=== PATIENT | female | born 1970 | race Caucasian/White ===

== ENCOUNTER → 2020-05-22 12:05 | Outpatient (BNVA) | payer BC, SELFPAY | PROVIDERS: Visit Provider Obstetrics & Gynecology | DX: Z11.3 Encounter for screening for infections with a predominantly sexual mode of transmission (principal) | CPT/HCPCS: 86592; 86803; 87340; 87806 ==

== ENCOUNTER → 2020-06-16 09:31 | Outpatient (BNVA) | payer BC, SELFPAY | PROVIDERS: Visit Provider Obstetrics & Gynecology | DX: R10.2 Pelvic and perineal pain (principal); N83.209 Unspecified ovarian cyst, unspecified side; Z90.710 Acquired absence of both cervix and uterus | CPT/HCPCS: 76830 ==

== ENCOUNTER 2020-06-22 08:47 | Outpatient (CLI) | payer BC, SELFPAY ==
[2020-06-22 12:52] LABS: Free T4 Free Thyroxine 1.12 ng/dL (0.82-1.77); Thyroid Stimulating Hormone 2.05 uIU/mL (0.27-4.20)
[2020-06-23 09:58] LABS: T3 Total 122 ng/dL (76-181)
== END 2020-06-22 08:48 | disposition home or self-care (01) ==
LOC: LAB 08:52
PROVIDERS: PCP Nurse Practitioner Family; Visit Provider Internal Medicine
DX: E04.2 Nontoxic multinodular goiter (principal); Z80.8 Family history of malignant neoplasm of other organs or systems
CPT/HCPCS: 36415; 84439; 84443; 84480; 99204

== ENCOUNTER 2020-09-08 07:28 | Emergency (ER) | payer BC, SELFPAY ==
[2020-09-08 07:37] VITALS: BP 148/102; PULSE 130; RESP 18; TEMP 36.7; O2SAT 98; BMI 29.5
--- NOTE | 2020-09-08 07:40 | XR_ITS ---
WS: [id number] Exam: XR chest 1V portable [id number] Date/Time of Exam: 09/08/2020 8:04 AM Reason For Exam: dyspnea/cough No priors. The lungs are fully expanded and clear. Normal cardiomediastinal structures and bony elements. Anteri or fusion with hardware partially visualized in the region of C7 and T1. XR/XR chest 1V portable [id number] IMPRESSION: 1. No acute cardiopulmonary finding.
--- NOTE | 2020-09-08 07:47 | W.ED.GENADLT ---
HPI - General Adult General: Chief complaint: General Medical Stated complaint: cough, runny nose, ear pain Time Seen by Provider: 09/08/20 07:36 History of Present Illness: HPI narrative: 50-year-old female presents emergency room with cough runny nose headache bilateral ear pain for the last 2 weeks. She initially had some diarrhea the cough is been persisting. She has not had any anosmia. She has a history of lupus is and on hydroxychloroquine. Snodderly had a productive cough but a lot of nasal drainage. Significant facial pain pressure as well. Onset (ago): week(s) (2) Location: head Severity: mild Quality: aching Relieving factors: none Exacerbating factors: none Associated symptoms: Reports cough, decreased appetite, dyspnea, headache(s), malaise, nausea and short of breath; Deny chest pain, confusion, diaphoresis, fevers/chills, rash, palpitations, seizures, syncope, vomiting or weakness Treatments prior to arrival: none Review of Systems Const: Reports: malaise; Denies: diaphoresis ENMT: Denies: throat pain, ear or mastoid pain, nasal discharge or nasal congestion Card: Denies: chest pain, palpitations or syncope Resp: Reports: dyspnea GI: Reports: nausea; Denies: vomiting : Denies: flank pain, difficulty voiding, dysuria, urinary frequency or urinary urgency Skin/Breast: Denies: rash Neuro: Reports: headache(s); Denies: confusion PFS ED PFSH: Medical History Depression Fibrocystic breast changes Lupus Right arm numbness Surgical History H/O neck surgery Fusion S/P breast biopsy, right S/P BSO (bilateral salpingo-oophorectomy) Pfannenstiel incision. Performed in [place]. Reports told had significant adhesions S/P hysterectomy ?LAV. Performed in [place] S/P laparoscopic cholecystectomy S/P tubal ligation Family History Mother , age 54 from breast cancer Diabetes Family history of thyroid problem Breast cancer Social History (Reviewed 09/08/20 @ 07:49 by SOREN Su Smoking and tobacco status: never smoked Alcohol intake: current Physical Exam Const: COMMON NORMALS: no acute distress GENERAL APPEARANCE: cooperative and comfortable ORIENTATION/CONSCIOUSNESS: Yes awake, Yes oriented to person, Yes oriented to place and Yes oriented to time HENMT: COMMON NORMALS: normocephalic, atraumatic and hearing grossly normal bilaterally HEAD & SCALP: normocephalic and atraumatic FACE & SINUS: sinus tenderness and Facial tenderness on exam of face and sinuses Neck/C-Spine: COMMON NORMALS: no JVD Resp: COMMON NORMALS: normal respiratory effort, No retractions, No use of accessory muscles and clear to auscultation bilaterally AUSCULTATION: clear to auscultation bilaterally Cardio: COMMON NORMALS: no JVD, regular rate, regular rhythm and No murmurs present (Cardio) RATE: regular rate RHYTHM: regular rhythm GI: COMMON NORMALS: Soft to palpation and No hepatosplenomegaly present AUSCULTATION: Yes normoactive bowel sounds PALPATION: Yes Soft to palpation, No Tenderness to palpation present (GI), No Guarding due to palpation present (GI) and Yes No hepatosplenomegaly present Extremity: COMMON NORMALS: normal to inspection, capillary refill normal, no clubbing, cyanosis or edema, no calf tenderness and no pedal edema Neuro: SENSORIUM/ORIENTATION: Yes oriented to person, Yes oriented to place and Yes oriented to time Skin: COMMON NORMALS: no rashes or lesions noted GENERAL SKIN EXAM: no rashes or lesions noted Course Vital Signs: Vital signs: Vital Signs Temperature 98.1 F 09/08/20 07:37 Pulse Rate 98 09/08/20 10:27 Respiratory Rate 18 09/08/20 07:37 Blood Pressure 131/88 09/08/20 10:27 Pulse Oximetry 95 09/08/20 10:27 MDM - General Adult MDM Narrative: Medical decision making narrative: D-dimer is elevated but CT of the chest is negative. We will go and treat her for sinusitis bronchitis prednisone Augmentin to cover for sinus infection and albuterol as needed follow-up if not improving Lab Data: Labs: Lab Results 09/08/20 09/08/20 09/08/20 Range/Units 07:50 07:50 07:50 WBC 6.4 (4.0-10.0) 10^3/ uL RBC 4.61 (4.1-5.3) 10^6/u L Hgb 14.2 (11.5-15.3) g/dL Hct 42.2 (37.0-47.0) % MCV 91.5 (81-99) fL MCH 30.8 (28.0-34.0) pg MCHC 33.6 (30.0-36.0) g/dL RDW 11.1 L (12.1-15.1) % Plt Count 274 (130-400) 10^3/c mm MPV 10.1 (7.4-10.4) fL Neut % (Auto) 69.6 % Lymph % (Auto) 22.5 % Converse % (Auto) 5.8 % Eos % (Auto) 1.3 % Baso % (Auto) 0.6 % Neut # (Auto) 4.43 (1.8-7.7) 10^3/u L Lymph # (Auto) 1.4 (0.8-4.8) 10^3/u L Converse # (Auto) 0.4 (0.2-0.9) 10^3/u L Eos # (Auto) 0.1 (0.0-0.8) 10^3/u L Baso # (Auto) 0.0 (0.0-0.1) 10^3/u L Nucleated RBC % (a uto) 0 % Nucleated RBCs # 0.0 /100WBC D-Dimer 0.64 H (0-0.59) ug/mIFE U Sodium 138 (136-145) mmol/L Potassium 3.9 (3.5-5.1) mmol/L Chloride 102 (98-107) mmol/L Carbon Dioxide 24 (22-29) mmol/L Anion Gap 15.9 (5-19) BUN 14 (6-20) mg/dL Creatinine 0.8 (0.5-0.9) mg/dL GFR Calculation 76.2 L (90-130) mL/min Glucose 118 H (65-115) mg/dL Calculated Osmolal ity 288 (285-295) mOsm/k g Calcium 9.9 (8.5-10.5) mg/dL Total Bilirubin 0.5 (0.15-1.2) mg/dL AST 14 (0-32) U/L ALT 14 (0-33) U/L Alkaline Phosphata se 125 H (35-105) IU/L Creatine Kinase 64 (26-192) U/L Total Protein 7.9 (6.6-8.7) g/dL Albumin 4.4 (3.5-5.2) g/dL Globulin 3.5 (1.3-4.6) g/dL Urine Color (Yellow) Urine Appearance (CLEAR) Urine pH (5-7) Ur Specific Gravit y (1.005-1.030) Urine Protein (Negative) Urine Glucose (UA) (Normal) Urine Ketones (Negative) Urine Blood (Negative) Urine Nitrate (Negative) Urine Bilirubin (Negative) Urine Urobilinogen (Negative) mg/dL Ur Leukocyte Milena ase (Negative) Urine RBC (0-2) /hpf Urine WBC (0-5) /hpf Ur Squamous Epith Cells (0-5) /hpf Ur Transition Epit h Cell /hpf Ur Renal Epithelia l Cell /hpf Amorphous Sediment Urine Bacteria (NONE) /hpf Hyaline Casts /lpf Urine Mucus /hpf SARS-CoV-2 Ag (Rap id) (Negative) 09/08/20 09/08/20 Range/Units 07:55 08:27 WBC (4.0-10.0) 10^3/ uL RBC (4.1-5.3) 10^6/u L Hgb (11.5-15.3) g/dL Hct (37.0-47.0) % MCV (81-99) fL MCH (28.0-34.0) pg MCHC (30.0-36.0) g/dL RDW (12.1-15.1) % Plt Count (130-400) 10^3/c mm MPV (7.4-10.4) fL Neut % (Auto) % Lymph % (Auto) % Converse % (Auto) % Eos % (Auto) % Baso % (Auto) % Neut # (Auto) (1.8-7.7) 10^3/u L Lymph # (Auto) (0.8-4.8) 10^3/u L Converse # (Auto) (0.2-0.9) 10^3/u L Eos # (Auto) (0.0-0.8) 10^3/u L Baso # (Auto) (0.0-0.1) 10^3/u L Nucleated RBC % (a uto) % Nucleated RBCs # /100WBC D-Dimer (0-0.59) ug/mIFE U Sodium (136-145) mmol/L Potassium (3.5-5.1) mmol/L Chloride (98-107) mmol/L Carbon Dioxide (22-29) mmol/L Anion Gap (5-19) BUN (6-20) mg/dL Creatinine (0.5-0.9) mg/dL GFR Calculation (90-130) mL/min Glucose (65-115) mg/dL Calculated Osmolal ity (285-295) mOsm/k g Calcium (8.5-10.5) mg/dL Total Bilirubin (0.15-1.2) mg/dL AST (0-32) U/L ALT (0-33) U/L Alkaline Phosphata se (35-105) IU/L Creatine Kinase (26-192) U/L Total Protein (6.6-8.7) g/dL Albumin (3.5-5.2) g/dL Globulin (1.3-4.6) g/dL Urine Color Yellow (Yellow) Urine Appearance Hazy A (CLEAR) Urine pH 5 (5-7) Ur Specific Gravit y 1.025 (1.005-1.030) Urine Protein Neg (Negative) Urine Glucose (UA) Norm (Normal) Urine Ketones Negative (Negative) Urine Blood Trace H (Negative) Urine Nitrate Negative (Negative) Urine Bilirubin Neg (Negative) Urine Urobilinogen Norm (Negative) mg/dL Ur Leukocyte Milena ase Negative (Negative) Urine RBC 0-4 H (0-2) /hpf Urine WBC None (0-5) /hpf Ur Squamous Epith Cells 25-40 H (0-5) /hpf Ur Transition Epit h Cell None /hpf Ur Renal Epithelia l Cell N /hpf Amorphous Sediment Not Reportable Urine Bacteria 1+ H (NONE) /hpf Hyaline Casts 0-4 H /lpf Urine Mucus 3+ /hpf SARS-CoV-2 Ag (Rap id) Negative (Negative) Discharge Plan Discharge Patient Disposition: Home Clinical Impression: Sinusitis, Bronchitis Condition: Stable Prescriptions: New Medrol (Adalid) 4 mg tablets,dose pack See Rx Instructions .ROUTE .COMPLEX Qty: 21 RF: 0 albuterol sulfate 90 mcg/actuation HFA aerosol inhaler 2 inh INHALATION Q4H PRN (Reason: shortness of breath or wheezing) Qty: 18 RF: 0 Augmentin 875-125 mg tablet 1 tab PO BID Qty: 20 RF: 0 No Action hydroxychloroquine [Plaquenil] 200 mg tablet 200 mg PO BID RF: 0 Discharge Orders: Discharge ED (Routine); Ordered 09/08/20 Ordered By: Eddie Lee Referrals: Mary Palencia [Primary Care Provider] - Discharge Diet: Usual diet Discharge Activity: Increase activity as tolerated Activity Restrictions/Additional Instructions: Follow-up with primary care if not improving Coding Level of Care Code ED Assemblyman Or Woman for [place] Fwd Exam Comprehensive
[2020-09-08] MEDS: ondansetron 2 mg/ML SDV 2 mL 4 MG IVP (07:54)
[2020-09-08 08:03] VITALS: O2SAT 97
[2020-09-08 08:18] LABS: Basophils % 0.6 %; Eosinophils # 0.1 10^3/uL (0.0-0.8); Eosinophils % 1.3 %; Hematocrit 42.2 % (37.0-47.0); Hemoglobin 14.2 g/dL (11.5-15.3); Lymphocytes # 1.4 10^3/uL (0.8-4.8); Lymphocytes % 22.5 %; Mean Corpuscular HGB Conc 33.6 g/dL (30.0-36.0); Mean Corpuscular Hemoglobin 30.8 pg (28.0-34.0); Mean Corpuscular Volume 91.5 fL (81-99); Mean Platelet Volume 10.1 fL (7.4-10.4); Monocytes # 0.4 10^3/uL (0.2-0.9); Monocytes % 5.8 %; Neutrophils # 4.43 10^3/uL (1.8-7.7); Neutrophils % 69.6 %; Nucleated Red Blood Cells % 0 %; Platelet Count 274 10^3/cmm (130-400); Red Blood Count 4.61 10^6/uL (4.1-5.3); Red Cell Distribution Width 11.1 % (12.1-15.1); White Blood Count 6.4 10^3/uL (4.0-10.0)
[2020-09-08 08:55] LABS: D Dimer 0.64 ug/mIFEU (0-0.59)
[2020-09-08 08:57] LABS: Alanine Aminotransferase 14 U/L (0-33); Albumin Level 4.4 g/dL (3.5-5.2); Alkaline Phosphatase 125 IU/L (35-105); Anion Gap 15.9 (5-19); Aspartate Amino Transferase 14 U/L (0-32); Blood Urea Nitrogen 14 mg/dL (6-20); Calcium 9.9 mg/dL (8.5-10.5); Carbon Dioxide 24 mmol/L (22-29); Chloride 102 mmol/L (98-107); Creatine Phosphokinase 64 U/L (26-192); Globulin 3.5 g/dL (1.3-4.6); Glomerular Filtration Rate 76.2 mL/min (90-130); Glucose 118 mg/dL (65-115); Osmolality Calculated 288 mOsm/kg (285-295); Potassium 3.9 mmol/L (3.5-5.1); Sodium 138 mmol/L (136-145); Total Bilirubin 0.5 mg/dL (0.15-1.2); Total Protein 7.9 g/dL (6.6-8.7)
[2020-09-08 09:16] LABS: Protein Urine Neg (Negative); Specific Gravity, Urine 1.025 (1.005-1.030); Urine Appearance Hazy (CLEAR); Urine Color Yellow (Yellow); pH Urine 5 (5-7)
[2020-09-08 09:17] LABS: Add Urine Microscopic? YES; Bilirubin Urine Neg (Negative); Blood Urine Trace (Negative); Glucose Urine UA Norm (Normal); Ketones Urine Negative (Negative); Leukocyte Esterase Urine Negative (Negative); Nitrate Urine Negative (Negative); Urobilinogen Urine Norm (Negative)
[2020-09-08 09:43] LABS: Add Urine Culture? No; Bacteria Urine 1+ /hpf; Hyaline Casts Urine 0-4 /lpf; Mucus Urine 3+ /hpf; RBC Urine 0-4 /hpf (0-2); Renal Epithelial Cells Urine N /hpf; Squamous Epithelial Cell Urine 25-40 /hpf (0-5)
[2020-09-08 09:50] LABS: SARS Covid-2 Antigen Negative (Negative)
--- NOTE | 2020-09-08 09:54 | CT_ITS ---
WS: [id number] CTA OF THE CHEST WITH PULMONARY EMBOLISM PROTOCOL TECHNIQUE: High-resolution contrast enhanced CTA of the chest with coronal and sagittal reformatted i mages with pulmonary embolism protocol. MIP images are also reviewed. CLINICAL INFORMATION: elevated d dimer, dypsnea COMPARISON: None. DLP: 501.[address] scans at [facility] use at least one of these dose optimization techniques: automat ed exposure control; mA and/or kV adjustment per patient size (includes targeted exams where dose is matched to clinical indication); or iterative reconstruction. FINDINGS: Both lungs are well aerated. No acute pulmonary infiltrates. No focal consolidation or pleural fluid. Proximal main pulmonary arteries are normal. Normal segmental and subsegmental pulmonary arteries. N o evidence of pulmonary embolus. Normal caliber thoracic aorta. No mediastinal or hilar lymphadenopathy. No axillary lymphadenopathy. Small esophageal hiatal hernia. Adrenal glands are normal. No axillary lymphadenopathy. Postoperative changes lower cervical and upper thoracic spine. CT/CT angio chest PE protcl [id number] IMPRESSION: 1. No evidence of pulmonary embolus. 2. No acute pulmonary infiltrates. No focal pneumonia or pleural fluid. 3. Small esophageal hiatal hernia.
[2020-09-08 10:27] VITALS: BP 131/88; PULSE 98; O2SAT 95
[2020-09-08] MEDS: promethazine 25 mg/mL SDV 1 mL IM (10:58)
--- NOTE | 2020-09-08 11:01 | PC.NURSE ---
Pt to CT
[2020-09-08] MEDS: iohexol 350 mg/mL 100 mL Btl IV (11:11)
[2020-09-08 12:10] VITALS: BP 122/77; PULSE 97; O2SAT 99
== END 2020-09-08 12:10 | disposition home or self-care (01) ==
PROVIDERS: Emergency Provider Family Medicine; PCP Nurse Practitioner Family
DX: J32.9 Chronic sinusitis, unspecified (principal); J40 Bronchitis, not specified as acute or chronic
CPT/HCPCS: 12345; 71045; 71275; 80053; 81001; 82550; 85025; 85378; 87426; 96372; 96374; 96375; 99283; 99284; J2405; J2550; J2930; Q9967

== ENCOUNTER 2020-10-13 07:39 | Outpatient (CLI) | payer BC, SELFPAY ==
--- NOTE | 2020-10-13 10:00 | US_ITS ---
WS: [id number] ULTRASOUND-GUIDED BILATERAL THYROID NODULEs, FNA HISTORY: E04.2 - Nontoxic multinodular goiter Procedure, risks, and complications were explained to the patient. Consent has been obtained. Prior ultrasound dated 06/05/2020 is reviewed. The skin is cleansed with ChloraPrep and anesthetized with 1% buffered lidocaine. FNA performed with 25 gauge needles. cardiology technologist is present to fix slides. RIGHT thyroid nodule: Cystic mass with mural nodule in the RIGHT thyroid. The mural nodule contain in creased vascularity. No complications. LEFT thyroid nodule: Solid mass nearly isoechoic to the remaining gland is biopsied without complicat ion. US/US biopsy thyroid [id number] IMPRESSION: Uncomplicated FNA of bilateral thyroid nodules. Final pathology results pending . Recommend continued close follow-up of the RIGHT mural thyroid nodule if the p athology is benign. This nodule on the RIGHT is more concerning than the LEFT t hyroid nodule for malignancy. This nodule may need to be surgically removed to confirm diagnosis.
== END 2020-10-13 07:40 | disposition home or self-care (01) ==
LOC: RAD 07:42
PROVIDERS: PCP Nurse Practitioner Family; Visit Provider Internal Medicine
DX: E04.2 Nontoxic multinodular goiter (principal)
CPT/HCPCS: 10005; 10006; 88173; 88305